=== PATIENT | male | born 1990 | race Caucasian/White ===

== ENCOUNTER 2018-02-15 11:28 | Emergency (ER) | payer OTHER ==
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
[2018-02-15 15:47] VITALS: BP 128/62
== END 2018-02-15 16:11 | disposition home or self-care (01) ==
DX: S06.0X0A Concussion without loss of consciousness, initial encounter (principal); Y09 Assault by unspecified means